=== PATIENT | female | born 1955 | race Caucasian/White ===

== ENCOUNTER 2018-03-13 09:59 | Outpatient (CLI) | payer MEDICARE | END 2018-03-13 10:00 | disposition home or self-care (01) | LOC: BICMRI 09:59 | PROVIDERS: ATTEND Physician Assistant | DX: M54.41 Lumbago with sciatica, right side (principal); M71.38 Other bursal cyst, other site | CPT/HCPCS: 72148 ==

== ENCOUNTER 2018-10-28 13:28 | Outpatient (CLI) | payer MEDICARE ==
--- NOTE | 2018-10-28 15:17 | BD ---
DEXA BONE DENSITY SCAN: DATE: 10/28/2018. COMPARISON: None. HISTORY: Postmenopausal female undergoing screening for osteoporosis. FINDINGS: Lumbar Spine: BMD (g/cm2) L1 0.622 T-Score: -3.3 L2 0.639 T-Score: -3.5 L3 0.741 T-Score: -3.1 L4 0.914 T-Score: -1.3 L1-L4 0.742 T-Score: -2.8 Femoral Neck: 0.688 T-Score: -1.5 Total Femur: 0.888 T-Score: -0.4 The FRAX-WHO fracture risk assessment tool is not reported as some T-scores are at or below -2.5. Impression: Diffuse osteoporosis of the lumbar spine correlating with a high associated risk for fracture. Osteo penia of the femoral neck noted as well. POS: JUAN
== END 2018-10-28 13:29 | disposition home or self-care (01) ==
LOC: BICMAMMO 13:28
PROVIDERS: ATTEND Family Medicine
DX: Z13.820 Encounter for screening for osteoporosis (principal); M81.0 Age-related osteoporosis without current pathological fracture; M85.859 Other specified disorders of bone density and structure, unspecified thigh
CPT/HCPCS: 77080

== ENCOUNTER 2019-06-24 12:11 | Outpatient (CLI) | payer MEDICARE ==
--- NOTE | 2019-06-24 13:43 | MRI ---
MRI LUMBAR SPINE WITHOUT CONTRAST: HISTORY: Lumbar radiculopathy. Low back pain, radiating down the left hip and left foot. COMPARISON: None. FINDINGS: Appropriate T1 marrow signal intensity of the lumbar vertebrae. Lumbar spine vertebral body height is maintained. No fracture. No significant STIR hyperintensity to suggest vertebral body edema or ligamentous injury. Symmetric signal intensity of the paraspinal muscles. Appropriate signal intensity of the visualized solid organs. Nonspecific T2 hyperintensity at the S1-S2 level suggesting a peroneal sleeve cyst, incompletely eval uated. Conus medullaris terminates at the upper aspect of L1. Incidental partial sacralization of L5. T12-L1:Adequate disc hydration. No significant central canal stenosis or significant neural foraminal narrowing. L1-L2:Adequate disc hydration. No significant central canal stenosis or significant neural foraminal narrowing. L2-L3:Adequate disc hydration. No significant loss of disc space height. Minimal left and right parac entral disc bulges along with ligamentum flavum thickening and facet hypertrophy result in minimal central canal stenosis. Right neural foramen is minimally narrowed due to disc material. Left neural foramen is patent. L3-L4:Adequate disc hydration. No significant loss of disc space height. Left and right paracentral d isc bulges, ligament flavum thickening and facet hypertrophy result in mild central canal stenosis. There is fluid in both facet joints. Mild bilateral neural foraminal narrowing. L4-L5:Adequate disc hydration. No significant loss of disc space height. Broad-based disc bulge, liga mentum flavum thickening and facet hypertrophy result in mild central canal stenosis. Narrowing of the left subarticular zone with partial obscuration the traversing left L5 nerve root secondary to di sc material and facet hypertrophy. Mild right and mild to moderate left neural foraminal narrowing. L5-S1:No significant canal stenosis or significant neural foraminal narrowing. IMPRESSION: Degenerative changes of the lumbar spine as detailed above. Transcribed Date/Time: 06/24/2019 1:53 PM
== END 2019-06-24 12:12 | disposition home or self-care (01) ==
LOC: BICMRI 12:11
PROVIDERS: ATTEND Specialist
DX: M47.26 Other spondylosis with radiculopathy, lumbar region (principal)
CPT/HCPCS: 72148

== ENCOUNTER 2019-07-28 14:47 | Outpatient (CLI) | payer MEDICARE ==
--- NOTE | 2019-07-28 15:45 | RAD ---
Exam: 5 views cervical spine HISTORY: Cervical spine pain. COMPARISON: None FINDINGS: On the AP and open-mouth projection, there is no malalignment. Facet arthropathy is identified. In the neutral position, predental space is normal. Straightening of cervical lordosis. Moderate loss of disc space height and osteophyte formation at C5-C6. Mild to moderate degenerative change at C6-C7. In the neutral position, there is 1 mm of anterolisthesis of C2 upon C3 and 2.8 mm anterolisthesis of C7 upon T1. Upon flexion, 2.3 mm of anterolisthesis of C2 upon C3 and 3.5 mm anterolisthesis of C7 upon T1. Upon extension, anterolisthesis of C2 upon C3 resolves. There is still 3.6 mm anterolisthesis of C7 u juan T1. IMPRESSION: Degenerative changes of the cervical spine as above. Transcribed Date/Time: 07/28/2019 3:55 PM
--- NOTE | 2019-07-28 15:54 | RAD ---
Exam: 4 views lumbar spine HISTORY: Lumbar radicular pain. FINDINGS: Five lumbar type vertebra. Diffuse bone demineralization. Vertebral body height is maintained. No fra cture. No significant loss of disc space height. L5-S1: In the neutral position 2.5 mm of anterolisthesis, upon flexion 3.2 mm anterolisthesis, upon e xtension, anterolisthesis resolves. Atherosclerosis of a nonaneurysmal aorta. IMPRESSION: Grade 1 anterolisthesis of L5 upon S1. Transcribed Date/Time: 07/28/2019 3:56 PM
== END 2019-07-28 14:48 | disposition home or self-care (01) ==
LOC: RAD 14:47
PROVIDERS: ATTEND Nurse Practitioner Family
DX: M54.2 Cervicalgia (principal); M43.17 Spondylolisthesis, lumbosacral region; M47.812 Spondylosis without myelopathy or radiculopathy, cervical region
CPT/HCPCS: 72040; 72100

== ENCOUNTER 2019-10-20 09:01 | Day surgery (SDC) | payer MEDICARE ==
[2019-10-17 09:22] VITALS: BMI 24.0
--- NOTE | 2019-10-20 00:34 | HP ---
HISTORY OF PRESENT ILLNESS: Ms. Frias is a 64-year-old woman known to us from prior evaluation of lumbar radiculopathy, who treated this with lumbar epidural steroid injection with Dr. Cano. This was for a right-sided radicular pain. She returns now with a new left-sided L5 radiculopathy that has been refractory to epidural steroid injections and was referred back to us for surgical discussion and evaluation. She has a new MRI from [facility] revealed severe lateral recess stenosis at L4-L5 that would impinge upon the descending left L5 nerve root. It fits her pain symptoms quite well. PAST MEDICAL HISTORY: Significant for anxiety, hypertension, chronic pain syndrome, and diabetes. CURRENT MEDICATIONS: 1. Iron. 2. Metformin. 3. Sertraline. 4. Quetiapine. 5. Atorvastatin. 6. Celebrex. 7. Aspirin. 8. Dicyclomine. 9. Lisinopril. ALLERGIES: NO KNOWN DRUG ALLERGIES. PHYSICAL EXAMINATION: GENERAL: The patient is alert and oriented x3. NEUROLOGIC: Gait is severely antalgic. Lower extremity motor exam reveals 5/5 strength in all movements of the lower extremities bilaterally. She does have a positive left straight leg raise. ASSESSMENT: Lumbar radiculopathy. PLAN: Dr. Lawrence met with the patient, reviewed imaging, and advocated for a left L4-L5 decompression. He explained to the patient the risks, benefits, and alternatives to the procedure. The patient expressed understanding and elected to move forward with surgery as discussed. I do believe the patient is mentally competent and capable of making medical decisions for herself. We will move forward with surgery as planned. Job ID: [id number]
[2019-10-20] MEDS ORDERED: Ondansetron PF 4 MG/2 ML Vial ONE (09:48)
[2019-10-20] MEDS ORDERED: Dexamethasone 20 MG/5 ML VIAL ONE (09:48)
[2019-10-20] MEDS ORDERED: PROPOFOL 200 MG/20 ML VIAL ONE (09:48)
[2019-10-20] MEDS ORDERED: Rocuronium Bromide 10 MG/ML (10ML VIAL) ONE (09:48)
[2019-10-20] MEDS ORDERED: Lidocaine 1% PF 5 ML VIAL ONE (09:48)
[2019-10-20] MEDS ORDERED: Glycopyrrolate 0.2 MG/ML 5 ML SYRINGE ONE (09:48)
[2019-10-20] MEDS ORDERED: Midazolam HCl 2 mg/2 ml Vial ONE (10:14)
[2019-10-20] MEDS ORDERED: EPINEPHrine 1 MG/ML AMP ONE (12:21)
[2019-10-20] MEDS ORDERED: Bupivacaine PF 0.5% 30 ML VIAL ONE (12:21)
[2019-10-20] MEDS ORDERED: Fentanyl 100 MCG/2 ML VIAL ONE ×3 (13:11→15:16)
[2019-10-20] MEDS ORDERED: HYDROcodone/Acetaminophen 5/325 mg Tablet ONE (16:21)
--- NOTE | 2019-10-21 08:43 | OP ---
DATE OF PROCEDURE: 10/20/2019 TEAROOM HOST: Anjel Ledbetter PA-C. INDICATION: Pain. DIAGNOSIS: Lumbar radiculopathy. PROCEDURE PERFORMED: L4-L5 decompression. ANESTHESIA: General. DESCRIPTION OF PROCEDURE: The patient was brought into the operating room and placed under general anesthesia. She was flipped from the supine to prone position on the operating room table. A linear incision was planned over the L4-L5 segment. After prepping and draping, and after an appropriate operative pause, the incision was created. The soft tissues were swept left of midline. A self-retaining retractor was placed. After confirming the appropriate level with C-arm fluoroscopy, high-speed cutting drill bit was used to perform a laminectomy along the inferior aspect of L4 and the superior aspect of L5. The laminectomy was extended laterally to encompass the medial aspect of the facet joint in order to adequately decompress the descending L5 nerve root within the lateral recesses. After completing the decompression, the wound was irrigated. Hemostasis was maintained throughout. The wound was then closed in anatomic layers and a pressure dressing was applied. There were no known procedural complications. Job ID: [id number]
== END 2019-10-20 17:15 | disposition home or self-care (01) ==
LOC: SDC 09:01
PROVIDERS: ATTEND Neurological Surgery
PROC: 01NB0ZZ Release Lumbar Nerve, Open Approach (ICD-10-PCS; principal; 2019-10-20)
DX: M48.061 Spinal stenosis, lumbar region without neurogenic claudication (principal); M54.16 Radiculopathy, lumbar region; G89.4 Chronic pain syndrome; F41.9 Anxiety disorder, unspecified; I10 Essential (primary) hypertension; E11.9 Type 2 diabetes mellitus without complications; E78.5 Hyperlipidemia, unspecified; F32.9 Major depressive disorder, single episode, unspecified; F90.0 Attention-deficit hyperactivity disorder, predominantly inattentive type; Z87.891 Personal history of nicotine dependence; Z79.82 Long term (current) use of aspirin; Z79.84 Long term (current) use of oral hypoglycemic drugs; Z79.899 Other long term (current) drug therapy
CPT/HCPCS: 76000; J0171; J0690; J1100; J2001; J2250; J2405; J2704; J3010; S0020

== ENCOUNTER 2020-03-02 14:05 | Outpatient (CLI) | payer MEDICARE ==
--- NOTE | 2020-03-02 15:21 | CT ---
CT lumbar spine without contrast: HISTORY: Left-sided back pain with radiation of pain down left leg. Lumbar radiculopathy. History of prior ivon k surgery in October 2019. COMPARISON: No prior CT exams of the lumbar spine available FINDINGS: Vascular calcifications are seen in the abdominal aorta and iliac arteries. Multiple punctate calcifi cations are seen throughout the pancreas likely sequela of prior pancreatitis. Nonspecific fluid-filled loops of small bowel are visualized. No fracture or subluxation is seen involving the lumbar spine T12-L1: Calcifications are seen in the intervertebral disc. No significant disc bulge or disc herniat ion is present. Central spinal canal and neural foramina are patent. L1-2: Mild disc osteophyte complex is present with calcifications along the posterior margin of the i ntervertebral disc. Findings do not result in significant central canal narrowing. The neural foramina are patent. L2-3: No significant central canal or neural foraminal narrowing is seen. L3-4: Mild disc osteophyte complex with facet hypertrophic changes. Mild flattening of the anterior a spect of thecal sac is present. Neural foramina are patent. L4-5: Mild broad-based disc osteophyte complex with facet hypertrophic changes and ligamentous thicke dawna. Findings result in mild generalized narrowing of the central spinal canal with mild right-sided neural foraminal narrowing. Left neural foramen is patent. L5-S1: Mild broad-based disc osteophyte complex. Facet degenerative changes are present. Findings res ult in mild bilateral neural foraminal narrowing. There is mild encroachment on the anterior and right posterolateral aspect of the thecal sac at this level. IMPRESSION: 1. Mild multilevel degenerative changes in the lumbar spine without high-grade central canal or neura l foraminal narrowing. 2. Multiple punctate calcifications seen throughout the pancreas likely sequela of prior pancreatitis . 3. Prominent vascular calcifications in the abdominal aorta and iliac arteries.
== END 2020-03-02 14:06 | disposition home or self-care (01) ==
LOC: BICCT 14:05
PROVIDERS: ATTEND Neurological Surgery
DX: M47.26 Other spondylosis with radiculopathy, lumbar region (principal); K86.89 Other specified diseases of pancreas; I70.0 Atherosclerosis of aorta; I70.8 Atherosclerosis of other arteries
CPT/HCPCS: 72131

== ENCOUNTER 2020-09-15 10:49 | Outpatient (CLI) | payer MEDICARE ==
--- NOTE | 2020-09-15 13:28 | MRI ---
LUMBAR SPINE MRI WITH AND WITHOUT CONTRAST: COMPARISON: None. CORRELATION: Lumbar spine CT 03/02/2020. HISTORY: Lumbar radiculopathy. FINDINGS: Appropriate T1 marrow signal intensity of the lumbar vertebra. Lumbar spine vertebral body height is maintained. No fracture. No significant STIR hyperintensity to suggest ligamentous injury or vertebral body edema. Post contrast images do not demonstrate any abnormal enhancement with regards t o the vertebral bodies. No abnormal enhancement with regards to the cauda equina and conus medullaris. 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 Appropriate signal intensity of the visualized solid organs and paraspinal muscles. Conus medullaris terminates at the superior aspect of L2. There appears be partial lumbarization of what will be designated the S1 vertebral body. Nomenclature is based on the CT from 03/02/2020. T11-T12 and T12-L1: Disc desiccation without significant loss of disc space height. No posterior disc abnormality. No significant central canal stenosis or foraminal narrowing. L1-L2: Adequate disc hydration. No significant central canal stenosis or significant neural foraminal narrowing. L2-L3: Adequate disc hydration. No posterior disc abdomen body. No significant central canal stenosis or significant neural foraminal narrowing. L3-L4: Adequate disc hydration. Minimal left right paracentral disc bulges. Mild mass effect upon the traversing left L4 nerve root without significant obscuration. No significant central canal stenosis. Mild bilateral neural foraminal narrowing due to disc material. L4-L5: Disc desiccation without significant loss of disc space height. Left and right paracentral dis c bulge, ligament flavum thickening and facet hypertrophy result in mild central canal stenosis. Small fluid in both facet joints. Mild to moderate right and mild left neural foraminal narrowing. L5-S1: Disc desiccation without significant loss of disc space height. Broad-based disc bulge, ligame nt flavum thickening and facet hypertrophy result in mild central canal stenosis. There is fluid in both facet joints. Moderate right and left foraminal narrowing. IMPRESSION: Degenerative changes of the lumbar spine as described above. There are varying degrees of central can al stenosis and foraminal narrowing. Transcribed Date/Time: 09/15/2020 1:38 PM
[2020-09-15] MEDS ORDERED: Magnevist 469MG/ML 20 ML VIAL ONE (14:48)
== END 2020-09-15 10:50 | disposition home or self-care (01) ==
LOC: TBSIIMAG 10:49 → MRI 10:50
PROVIDERS: ATTEND Neurological Surgery
DX: M47.26 Other spondylosis with radiculopathy, lumbar region (principal); M48.061 Spinal stenosis, lumbar region without neurogenic claudication
CPT/HCPCS: 72158; 82565; A9579

== ENCOUNTER 2020-12-27 11:42 | Outpatient (CLI) | payer MEDICARE | END 2020-12-27 11:43 | disposition home or self-care (01) | LOC: RAD 11:42 | PROVIDERS: ATTEND Specialist | DX: M51.16 Intervertebral disc disorders with radiculopathy, lumbar region (principal); R93.7 Abnormal findings on diagnostic imaging of other parts of musculoskeletal system | CPT/HCPCS: 72120 ==

== ENCOUNTER 2021-02-02 08:30 | Day surgery (SDC) | payer MEDICARE ==
[2021-01-31 11:27] VITALS: BMI 26.1
[2021-02-02] MEDS ORDERED: EPINEPHrine 1 MG/ML AMP ONE (09:44)
[2021-02-02] MEDS ORDERED: Bupivacaine PF 0.5% 30 ML VIAL ONE (09:44)
[2021-02-02] MEDS ORDERED: Fentanyl 100 MCG/2 ML VIAL ONE ×3 (09:46→14:23)
[2021-02-02] MEDS ORDERED: Lidocaine 1% PF 5 ML VIAL ONE (11:24)
[2021-02-02] MEDS ORDERED: Ondansetron PF 4 MG/2 ML Vial ONE (11:24)
[2021-02-02] MEDS ORDERED: Glycopyrrolate 0.2 MG/ML 5 ML SYRINGE ONE (11:24)
[2021-02-02] MEDS ORDERED: PROPOFOL 200 MG/20 ML VIAL ONE (11:24)
[2021-02-02] MEDS ORDERED: PHENYLEPHRINE-NS 100 MCG/ML 10 ML SYRINGE ONE (11:24)
[2021-02-02] MEDS ORDERED: ePHEDrine Sulfate 50 MG/10 ML VIAL ONE ×2 (11:24→13:15)
[2021-02-02] MEDS ORDERED: Rocuronium Bromide 10 MG/ML (10ML VIAL) ONE (11:24)
[2021-02-02] MEDS ORDERED: Ondansetron HCl/PF 4 MG/2 ML Vial IVP PRN (12:45)
[2021-02-02] MEDS ORDERED: Promethazine HCl 25 MG/ML VIAL IM PRN (12:45)
[2021-02-02] MEDS ORDERED: Promethazine HCl 25 MG/ML VIAL IVPB PRN (12:45)
[2021-02-02] MEDS ORDERED: Meperidine HCl/PF 25 MG/ML VIAL SLOW IVP PRN (12:45)
[2021-02-02] MEDS ORDERED: Morphine Sulfate 2 MG/ML SYRINGE SLOW IVP PRN (12:45)
[2021-02-02] MEDS ORDERED: HYDROmorphone 0.5 MG/0.5 ML SYRINGE ONE (14:25)
[2021-02-02] MEDS ORDERED: HYDROcodone/Acetaminophen 5/325 mg Tablet ONE ×2 (15:56→16:31)
== END 2021-02-02 16:38 | disposition home or self-care (01) ==
LOC: SDC 08:30
PROVIDERS: ATTEND Neurological Surgery
PROC: 0SG3071 Fusion of Lumbosacral Joint with Autologous Tissue Substitute, Posterior Approach, Posterior Column, Open Approach (ICD-10-PCS; principal; 2021-02-02)
DX: M43.16 Spondylolisthesis, lumbar region (principal); M54.16 Radiculopathy, lumbar region; I10 Essential (primary) hypertension; G89.4 Chronic pain syndrome; E11.9 Type 2 diabetes mellitus without complications; Z79.82 Long term (current) use of aspirin; Z79.84 Long term (current) use of oral hypoglycemic drugs; Z79.899 Other long term (current) drug therapy
CPT/HCPCS: 20930; 20936; 22612; 22840; 76000; C1713 ×3; C1768; J0171; J0690; J1170; J2405; J2704; J3010; S0020

== ENCOUNTER 2021-07-13 09:26 | Outpatient (CLI) | payer MEDICARE | END 2021-07-13 09:27 | disposition home or self-care (01) | LOC: TBSIIMAG 09:26 | PROVIDERS: ATTEND Neurological Surgery | DX: M47.26 Other spondylosis with radiculopathy, lumbar region (principal); Z98.890 Other specified postprocedural states | CPT/HCPCS: 72158; 82565 ==

== ENCOUNTER 2021-08-17 10:49 | Outpatient (CLI) | payer MEDICARE ==
[2021-08-17] MEDS ORDERED: Iopamidol 370 76% 100 ML VIAL ONE (11:02)
== END 2021-08-17 10:50 | disposition home or self-care (01) ==
LOC: CT 10:49
PROVIDERS: ATTEND Family Medicine
DX: R10.32 Left lower quadrant pain (principal); K86.1 Other chronic pancreatitis; K44.9 Diaphragmatic hernia without obstruction or gangrene
CPT/HCPCS: 74177; 82565; Q9967

== ENCOUNTER 2023-12-28 12:55 | Outpatient (CLI) | payer MEDICARE | END 2023-12-28 12:56 | disposition home or self-care (01) | LOC: BICMAMMO 12:55 | PROVIDERS: ATTEND Family Medicine | DX: M81.0 Age-related osteoporosis without current pathological fracture (principal); M85.851 Other specified disorders of bone density and structure, right thigh; M85.852 Other specified disorders of bone density and structure, left thigh | CPT/HCPCS: 77080 ==

== ENCOUNTER 2024-11-27 13:26 | Outpatient (CLI) | payer MEDICARE | END 2024-11-27 13:27 | disposition home or self-care (01) | LOC: BICCT 13:26 | PROVIDERS: ATTEND Internal Medicine Cardiovascular Disease | DX: I73.9 Peripheral vascular disease, unspecified (principal); I70.8 Atherosclerosis of other arteries; R93.2 Abnormal findings on diagnostic imaging of liver and biliary tract; I77.4 Celiac artery compression syndrome; K55.1 Chronic vascular disorders of intestine; I70.1 Atherosclerosis of renal artery; I70.202 Unspecified atherosclerosis of native arteries of extremities, left leg; I70.0 Atherosclerosis of aorta | CPT/HCPCS: 75635; 82565 ==